=== PATIENT | male | born 1960 | race Caucasian/White ===

== ENCOUNTER 2018-05-06 21:39 | Emergency (ER) | payer OTHER, SELFPAY ==
--- NOTE | 2018-05-06 22:10 | DI.CT.S_ITS ---
PROCEDURE: CT HEAD/BRAIN WO CON INDICATIONS: Left-sided temporal trauma TECHNIQUE: Noncontrast 4.5 mm thick angled axial sections acquired from the foramen magnum to the vertex, with coronal and sagittal reformats. For radiation dose reduction, the following was used: automated exposure control, adjustment of mA and/or kV according to patient size. COMPARISON: None. FINDINGS: Image quality: Excellent. CSF spaces: Basal cisterns are patent. No extra-axial fluid collections. The ventricles are symmetric in size and shape. Brain: No intracranial bleeds or masses. There is cerebral volume loss for age, with resultant ventricular and sulcal prominence. There are periventricular and deep white matter chronic small vessel ischemic changes. There is intracranial internal carotid artery atherosclerosis. Skull and face: Calvarium and visualized facial bones appear intact, without suspicious lesions. Left temporoparietal scalp swelling/hematoma with skin nabor. Sinuses: Visualized sinuses and mastoids are clear. IMPRESSION: No acute intracranial process. Left temporoparietal scalp hematoma and laceration. Dictated by: Sami Worley M.D. on 05/07/2018 at 7:16 Approved by: Sami Worley M.D. on 05/07/2018 at 7:18
--- NOTE | 2018-05-06 22:10 | ED.WOUNDLAC ---
HPI - Wound/Laceration General Chief Complaint: Wound/Laceration Stated Complaint: Head Injury/ LAC Time Seen by Provider: 05/06/18 22:10 Source: patient Mode of arrival: EMS Limitations: no limitations History of Present Illness HPI narrative: patient is a [age]-year-old male brought in by EMS after he sustained an injury while on the job. 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 No loss of consciousness. Did have bleeding from the left side of his head. Related Data Allergies Allergy/AdvReac Type Severity Reaction Status Date / Time No Known Drug Allergies Allergy Verified 05/06/18 22:52 Review of Systems Constitutional Denies fatigue, Denies headache(s) and Denies lethargy Eyes Denies blurry vision, Denies change in vision, Denies diplopia, Denies irritation and Denies eye pain ENT Ears, Nose, Mouth, and Throat: Denies dental pain, Denies dizziness, Denies headache(s), Denies nasal trauma and Denies disequilibrium Comments: Bleeding left side of his head Cardiovascular Denies chest pain and Denies dyspnea Respiratory Denies cough and Denies dyspnea Integumentary/Breasts Comments: cut left side of head Neurologic Denies behavioral changes, Denies confusion, Denies dizziness, Denies headache(s) and Denies disequilibrium Psychiatric Denies behavioral changes and Denies confusion Endocrine Denies fatigue Hematologic/Lymphatic Denies easy bleeding and Denies easy bruising Exam Initial Vital Signs Initial Vital Signs: Vital Signs Pulse Rate 93 H 05/06/18 22:14 Respiratory Rate 18 05/06/18 22:14 Blood Pressure 178/103 H 05/06/18 22:14 Pulse Oximetry 100 05/06/18 22:14 Const General: cooperative, healthy appearing and No acute distress Orientation: alert, awake and oriented x3 HENMT Head: other ( arrived with bandage providing pressure to the left side of his head with matted blood) Ears: hearing grossly normal bilaterally and TM's normal bilaterally Nose: external nose normal Face and sinus: sinuses nontender and face asymmetric Mouth: oral mucosae normal Eyes General: appearance normal, both eyes and all related structures Eyelids: eyelids normal Pupils: PERRL Resp Effort & Inspection: normal respiratory effort Skin Other: laceration left- side of head Neuro General: alert, awake and oriented x3 Cognition: normal cognition Speech: speech normal Extrem Other: moves all 4 extremities without problems Procedures Laceration Repair Laceration 1: Site: scalp Side (If applicable): left Size (cm): 4 Description: linear Depth: involves muscle layer Local Anesthetic: lidocaine 1% and with epi Amount of anesthesia used (mL): 6 Pre-repair: wound explored, irrigated extensively and deep structures intact ( periosteum not involved) Skin layer closed with: other ( 7 nabor) Subcutaneous layer closed with: vicryl Size: 3-0 Number of sutures: 1 Technique: simple, interrupted Course Orders Ordered: ED Orders 05/06/18 22:10 CT head/brain wo con Stat Discontinued Medications Diphtheria/Tetanus/Acell Pertussis (Adacel) 0.5 ml IM .ONCE ONE Stop: 05/06/18 22:12 Last Admin: 05/06/18 22:52 Dose: 0.5 ml Vital Signs - 8 hr 05/06/18 22:14 05/06/18 23:22 Temperature 98.5 F Pulse Rate 93 H 87 Respiratory Rate 18 14 Blood Pressure 178/103 H 153/99 H Pulse Oximetry 100 96 MDM - Wound/Laceration Imaging Data CT scan - head: Radiologist's impression: no acute intracranial process is identified. Mild age-related changes. Left temporoparietal scalp hematoma / laceration. Skin nabor MDM Narrative Medical decision making narrative: patient arrived with normal neurologic exam. Had a left scalp laceration that when cleaned revealed that it was to the skull. Periosteum was intact. There was a small arterial bleed that was controlled with 1 Vicryl suture after electrocautery was unsuccessful. No foreign bodies noted after exploration. The skin was closed with [address] shows no signs of skull fracture or head bleed. No other injuries from the event reported or noticed on the exam. Patient's tetanus shot was updated. Patient was given care instructions and return precautions. He expressed understanding and agreement with plan Discharge Plan Departure Patient Disposition: Home, Self-Care Clinical Impression: Laceration of head, CHI (closed head injury) Discharge Date/Time: 05/06/18 23:25 Interventions: ED Discharge Assessment Last Done: 05/06/18 23:22 Instructions: Closed Head Injury, How to Care for a Surgical Wound-[place] Activity Restrictions/Additional Instructions: you can shower like normal. The nabor do need to be removed in 10 days. Keep the area clean. Return to the emergency department for any new or worsening symptoms.
[2018-05-06 22:14] VITALS: BP 178/103; PULSE 93; RESP 18; O2SAT 100; BMI 24.4
[2018-05-06] MEDS: TET,DIPH,PERTUSS(ACELL),VAC/PF 0.5 ML SYRINGE IM (22:52)
[2018-05-06 23:22] VITALS: BP 153/99; PULSE 87; RESP 14; TEMP 36.9; O2SAT 96
== END 2018-05-06 23:25 | disposition home or self-care (01) ==
PROVIDERS: Emergency Provider Emergency Medicine
DX: S09.90XA Unspecified injury of head, initial encounter (principal); W22.8XXA Striking against or struck by other objects, initial encounter; Y99.0 Civilian activity done for income or pay
CPT/HCPCS: 12002; 70450; 90471; 99283; 99284; 99291; 90715